=== PATIENT | female | born 1985 | race Caucasian/White ===

== ENCOUNTER 2024-10-11 04:22 | Emergency (ER) | payer MEDICAID ==
[~2024-10-11] VITALS: Ht 157.5 cm; Wt 114.0 kg
[2024-10-11 04:37] VITALS: BP 180/87; PULSE 92; RESP 18; TEMP 98; O2SAT 99
[2024-10-11 05:32] LABS: BASOPHILS % 0.8 % (0.0-2.0); HEMATOCRIT. 39.8 % (36.0-48.0); HEMOGLOBIN. 13.6 g/dL (12.0-16.0); LYMPHOCYTES % 20.1 % (20.0-50.0); MEAN CORPUSCULAR HEMOGLOBIN 29.9 pg (28.0-32.0); MEAN CORPUSCULAR VOLUME 87.8 fL (81.0-99.0); MEAN PLATELET VOLUME 8.6 fl (7.4-10.4); MONOCYTES % 4.7 % (2.0-8.0); NEUTROPHILS % 71.4 % (40.0-76.0); PLATELET 277 x1000/uL (130-400); RED BLOOD CELL COUNT 4.54 mill/uL (4.2-5.4); RED CELL DISTRIBUTION WIDTH 13.8 % (11.6-14.6); WHITE BLOOD COUNT 7.8 x1000/uL (4.5-11.0)
[2024-10-11 05:49] LABS: CHLORIDE 104 mEq/L (98-107); SODIUM 137 mEq/L (136-145)
[2024-10-11 05:50] LABS: CALCIUM 9.6 mg/dL (8.7-10.4); CARBON DIOXIDE 24 mEq/L (21-32)
[2024-10-11 05:55] LABS: CREATININE 0.7 mg/dL (0.6-1.0); GLUCOSE 105 mg/dL (70-105); UREA NITROGEN BLOOD 14 mg/dL (9-23)
[2024-10-11 06:18] LABS: HCG SCREEN NEGATIVE
[2024-10-11 07:02] LABS: GLUCOSE URINE NEGATIVE (NEGATIVE); KETONES URINE NEGATIVE (NEGATIVE)
[2024-10-11 07:36] LABS: CLARITY URINE TURBID (CLEAR); COLOR URINE BLOODY (YELLOW)
[2024-10-11 07:41] LABS: PH URINE 5.5 (4.5-8.0); SPECIFIC GRAVITY URINE 1.021 (1.005-1.030)
[2024-10-11 07:42] LABS: NITRITE URINE NEGATIVE (NEGATIVE); PROTEIN URINE 1+ (NEGATIVE)
[2024-10-11 07:43] LABS: LEUKOCYTE ESTERASE URINE TRACE (NEGATIVE); OCCULT BLOOD URINE 3+ (NEGATIVE); UROBILINOGEN URINE 0.2 E.U./dL (0.2-1.0)
[2024-10-11 07:53] LABS: RBC URINE TNTC /hpf (0-2); SQUAMOUS EPITHELIAL CELL URINE NONE SEEN /lpf (RARE/1+)
[2024-10-11 07:54] LABS: BACTERIA URINE NONE SEEN
== END 2024-10-11 08:16 | disposition left against medical advice (07) ==
LOC: ER 04:22
DX: Z00.00 Encounter for general adult medical examination without abnormal findings (principal); Z53.21 Procedure and treatment not carried out due to patient leaving prior to being seen by health care provider
CPT/HCPCS: 36415; 80048; 81003; 84703; 85025; 86850; 86900

== ENCOUNTER 2025-02-19 07:31 | Emergency (ER) | payer MEDICAID ==
[~2025-02-19] VITALS: Ht 154.9 cm; Wt 120.0 kg
[2025-02-19 07:45] VITALS: O2SAT 97
[2025-02-19 08:42] LABS: BASOPHILS % 0.7 % (0.0-2.0); CHLORIDE 107 mEq/L (98-107); EOSINOPHILS % 1.3 % (0.0-5.0); HEMATOCRIT. 36.9 % (36.0-48.0); HEMOGLOBIN. 12.8 g/dL (12.0-16.0); MEAN CORPUSCULAR HEMOGLOBIN 30.4 pg (28.0-32.0); MEAN CORPUSCULAR HGB CONC 34.7 g/dL (31.0-37.0); MEAN CORPUSCULAR VOLUME 87.6 fL (81.0-99.0); MEAN PLATELET VOLUME 8.6 fl (7.4-10.4); MONOCYTES % 5.8 % (2.0-8.0); NEUTROPHILS % 74.2 % (40.0-76.0); PLATELET 265 x1000/uL (130-400); RED BLOOD CELL COUNT 4.21 mill/uL (4.2-5.4); RED CELL DISTRIBUTION WIDTH 14.2 % (11.6-14.6); SODIUM 139 mEq/L (136-145); WHITE BLOOD COUNT 6.8 x1000/uL (4.5-11.0)
[2025-02-19 08:43] LABS: CARBON DIOXIDE 24 mEq/L (21-32)
[2025-02-19 08:44] LABS: CALCIUM 9.4 mg/dL (8.7-10.4)
[2025-02-19 08:48] LABS: CREATININE 0.7 mg/dL (0.6-1.0); GLUCOSE 129 mg/dL (70-105); HCG SCREEN NEGATIVE
[2025-02-19 08:49] LABS: UREA NITROGEN BLOOD 14 mg/dL (9-23)
[2025-02-19 08:55] LABS: COLOR URINE BLOODY (YELLOW)
[2025-02-19 08:56] LABS: CLARITY URINE TURBID (CLEAR)
[2025-02-19 08:57] LABS: GLUCOSE URINE 1+ (NEGATIVE); KETONES URINE NEGATIVE (NEGATIVE); LEUKOCYTE ESTERASE URINE NEGATIVE (NEGATIVE); NITRITE URINE POSITIVE (NEGATIVE); OCCULT BLOOD URINE 3+ (NEGATIVE); PROTEIN URINE 3+ (NEGATIVE); UROBILINOGEN URINE 0.2 E.U./dL (0.2-1.0)
[2025-02-19 08:59] LABS: RBC URINE TNTC /hpf (0-2)
[2025-02-19 09:01] LABS: SQUAMOUS EPITHELIAL CELL URINE NONE SEEN /lpf (RARE/1+)
[2025-02-19 09:02] LABS: BACTERIA URINE 1+
[2025-02-19 09:03] LABS: WBC URINE 0-2 /hpf (0-2)
[2025-02-19] MEDS: MEDROXYPROGESTERONE ACET 5MG TABLET PO SCH (09:03)
[2025-02-19] MEDS: SODIUM CHLORIDE 0.9% 1,000 ML IV ONE (09:04)
[2025-02-19] MEDS: TRANEXAMIC ACID 1,000MG/10ML IV ONE (09:47)
[2025-02-19] MEDS ORDERED: MEDR10TA MT (12:46)
[2025-02-19] MEDS ORDERED: TOPUD MT (12:46)
[2025-02-19] MEDS ORDERED: TRAN650T5 MT (12:46)
[2025-02-19] MEDS ORDERED: IBUP-1523 MT (12:46)
[2025-02-19 13:20] VITALS: BP 141/89; PULSE 90; RESP 25; TEMP 36.9; O2SAT 97
== END 2025-02-19 13:30 | disposition home or self-care (01) ==
LOC: ER 07:31
DX: N92.0 Excessive and frequent menstruation with regular cycle (principal); R10.2 Pelvic and perineal pain; Z79.899 Other long term (current) drug therapy; Z98.890 Other specified postprocedural states; Z90.49 Acquired absence of other specified parts of digestive tract
CPT/HCPCS: 80048; 81003; 84703; 85025; 36415; 76830; 76856; 96361; 96374; 99285; J7030; Z7610 ×2